=== PATIENT | male | born 1985 | race Caucasian/White ===

== ENCOUNTER 2018-12-10 16:16 | Emergency (ER) | payer SELFPAY ==
[~2018-12-10] VITALS: Ht 177.8 cm; Wt 66.0 kg
[2018-12-10 16:38] VITALS: BP 119/79
== END 2018-12-10 20:26 | disposition home or self-care (01) ==
LOC: ER 16:16
DX: S20.20XA Contusion of thorax, unspecified, initial encounter (principal); V43.62XA Car passenger injured in collision with other type car in traffic accident, initial encounter; Y93.89 Activity, other specified; Y92.488 Other paved roadways as the place of occurrence of the external cause
CPT/HCPCS: 71101; 99283